=== PATIENT | female | born 1975 | race Caucasian/White ===

== ENCOUNTER 2021-05-08 10:40 | Emergency (ER) | payer OTHER, SELFPAY ==
[2021-05-08 10:49] VITALS: BP 130/84; PULSE 100; RESP 18; TEMP 36.6; O2SAT 100
--- NOTE | 2021-05-08 10:49 | ED.URI ---
HPI - URI/Sore Throat General Chief Complaint: Upper Respiratory Infection Stated Complaint: congestion,headache,cough Time Seen by Provider: 05/08/21 10:47 Source: patient and RN notes reviewed Mode of arrival: ambulatory Limitations: no limitations History of Present Illness HPI Narrative: 45-year-old female presented for complaint of sinus congestion x2 weeks. Endorses cough and hoarse voice. Cough is worse at night. She has inhaler she has been using as needed. Also using [id number] cough syrup nyquil and daily cetirizine. She denies shortness of breath, wheezing, nausea, vomiting, diarrhea, fever or chills. Denies sick contacts. She is vaccinated for Covid and flu. She states she had Covid 01/2021. MD elicited complaint: cough Related Data Home Medications Medication Instructions Recorded Confirmed famotidine 40 mg PO HS 05/08/21 05/08/21 gabapentin 300 mg PO BID 05/08/21 05/08/21 phentermine 37.5 mg PO DAILY 05/08/21 05/08/21 rosuvastatin 5 mg PO DAILY 05/08/21 05/08/21 topiramate 200 mg PO BID 05/08/21 05/08/21 Allergies Allergy/AdvReac Type Severity Reaction Status Date / Time nitrofurantoin Allergy Mild RASH Verified 05/08/21 10:56 Review of Systems Review of Systems: CONSTITUTIONAL: denies malaise, chills, sweats, fever EYES: Denies visual changes, redness, or discharge ENT: Reports rhinorrhea, congestion, denies sinus pain, otalgia, sore throat CARDIOVASCULAR: Denies chest pain, palpitations, edema RESPIRATORY: Reports cough, post nasal drainage. Denies dyspnea GASTROINTESTINAL: Denies abdominal pain, nausea, vomiting, diarrhea SKIN: Denies rash or itching MUSCULOSKELETAL: denies myalgia NEUROLOGIC: Denies headache REPLACED BY [facility] Social History Social History Gender identity (if verbalized by the patient): Female Exam Narrative: GENERAL: Ill-appearing, nontoxic HEAD: Normocephalic EYES: conjunctivae clear ENT: Mucous membranes moist. TM pearly foreman with dull light reflex bilaterally; no tragal tenderness. Hoarse voice, Oropharynx erythematous, tonsils absent, without lesions or exudate, no drooling, no hoarseness, no trismus, uvula midline. No tripod positioning, muffled voice, soft palate or pharyngeal wall bulging NECK: Supple. No lymphadenopathy CHEST: Clear to auscultation, breath sounds equal. No wheezing, rhonchi, rales, or stridor. No respiratory distress, speaks in full sentences. HEART: Regular rate and rhythm. No murmur heard. SKIN: Warm, dry, no rash. NEURO: Alert and oriented x3. PSYCH: Normal mood and affect Course Course Emergency Course: Patient is aware of diagnosis, understands and agrees to treatment plan. Anticipatory guidance given. Patient agrees to follow-up as directed and is aware of reasons to seek care at the emergency department. Portions of this record may have been created with voice recognition software Level of Care: Express Care Visit Vital Signs Vital signs: Vital Signs Temperature 97.9 F 05/08/21 10:49 Pulse Rate 100 05/08/21 10:49 Respiratory Rate 18 05/08/21 10:49 Blood Pressure 130/84 05/08/21 10:49 Pulse Oximetry 100 05/08/21 10:49 Temperature 97.9 F 05/08/21 10:49 Pulse Rate 100 05/08/21 10:49 Respiratory Rate 18 05/08/21 10:49 Blood Pressure 130/84 05/08/21 10:49 Pulse Oximetry 100 05/08/21 10:49 reviewed MDM - URI/Sore Throat MDM Narrative Medical decision making narrative: Symptoms are consistent with sinusitis. Antibiotic and steroid prescribed for laryngitis. She is agreeable to take Tessalon Perles, however she states she is not sure if her insurance will cover it and will get the guaifenesin with codeine prescription filled only if no coverage for the Tessalon Perles. Patient is appropriate for outpatient treatment and follow-up. Differential Diagnosis Differential diagnosis: Likely upper respiratory infection, sinusitis, viral infection and
== END 2021-05-08 11:06 | disposition home or self-care (01) ==
PROVIDERS: Emergency Provider Nurse Practitioner Family; PCP Family Medicine
DX: J06.9 Acute upper respiratory infection, unspecified (principal); Z86.16 Personal history of COVID-19
CPT/HCPCS: 99213; G0463

== ENCOUNTER 2021-07-15 10:04 | Emergency (ER) | payer OTHER, SELFPAY ==
--- NOTE | 2021-07-15 10:29 | ED.URI ---
HPI - URI/Sore Throat General Chief Complaint: Upper Respiratory Infection Stated Complaint: sob,congestion Time Seen by Provider: 07/15/21 10:29 Source: patient Mode of arrival: ambulatory Limitations: no limitations History of Present Illness HPI Narrative: Ms. Burns is a 46-year-old female patient presenting to the clinic today with complaints of shortness of breath and congestion for 3 days. She reports she is unable to breathe out of her nose and she feels as though something is sitting on her chest. Denies any chest pain however she feels as though she has some chest congestion. She has a history of asthma and has used albuterol inhalers in the past for this. She also reports that she has a productive cough with some light yellowish coloration. Feels as though drainage is going in the back of her throat. She denies any fever or chills. She denies any known exposure to anybody with COVID, flu, or strep. She has had COVID back in January of last year. Related Data Home Medications Medication Instructions Recorded Confirmed gabapentin 300 mg capsule cap 07/15/21 phentermine 37.5 mg tablet tablet 07/15/21 rosuvastatin 5 mg tablet tablet 07/15/21 topiramate 100 mg tablet tablet 07/15/21 ubrogepant 100 mg tablet (Ubrelvy) tablet 07/15/21 Allergies Allergy/AdvReac Type Severity Reaction Status Date / Time nitrofurantoin Allergy Mild RASH Verified 07/15/21 11:10 Review of Systems Review of Systems: Pertinent positives per HPI. Patient denies any fever, chills, rash, headache, visual changes, dizziness, runny nose, sore throat, chest pain, palpitations, nausea, vomiting, diarrhea, constipation, abdominal pain, or any urinary issues. PMFSH Social History Social History Gender identity (if verbalized by the patient): Female Comments At the time of my signature, I reviewed and agree with the nursing past medical, surgical, social, and family history. There is no relevant family history pertinent to the patient complaint. Exam Narrative: General: Well-developed, well nourished, in no apparent distress Head: Normocephalic, atraumatic Eyes: Pupils equally round and reactive to light bilaterally, EOM intact, sclera and conjunctive clear, no discharge, lids normal Ears: TMs intact and clear, ear canals clear, no drainage, grossly hearing normal. Nose: Nares patent, no discharge, moderate inflammation to the anterior and posterior turbinates no sinus tenderness. Mouth: Oropharynx without lesions or masses, good dentition, MMM. Oropharynx red, postnasal drip Neck: Supple, trachea midline, no enlargement of anterior or posterior cervical nodes, no thyroid masses or goiter palpable. Cardio: Regular rate and rhythm, s1 and s2 normal, no murmur appreciated. Resp: Lung sounds diminished in the lower bases otherwise clear to auscultation bilaterally anteriorly and posteriorly, no rhonchi, rales, wheezing or rubs Course Course Emergency Course: Portions of this record may have been created with voice recognition software. Level of Care: Express Care Visit Vital Signs Vital signs: Vital signs reviewed MDM - URI/Sore Throat MDM Narrative Medical decision making narrative: At the time of visit patient is resting me on the exam table. She reports that she feels as though something is sitting on her chest. She is complaining of some shortness of breath with head congestion. EKG, COVID testing, and influenza testing completed in the clinic. EKG shows sinus tach with a heart rate of 106 without ectopy. Influenza testing was negative. COVID testing was positive. Supportive measures were discussed with the patient and I will give her a prescription for albuterol inhaler and paxlovid. Discussed that she needs to discontinue her Ubrelvy while taking the paxlovid. She voiced understanding discharge instructions and agrees with the treatment plan. Different
[2021-07-15 10:36] VITALS: BP 138/90; PULSE 119; RESP 18; TEMP 36.6; O2SAT 100
--- NOTE | 2021-07-15 11:00 | ECG_ITS ---
Measurements Intervals [place] Rate: 106 P: 69 WA: 142 QRS: 48 QRSD: 78 T: 53 QT: 322 QTc: 429 Interpretive Statements SINUS TACHYCARDIA OTHERWISE WITHIN NORMAL LIMITS ABNORMAL RHYTHM ECG NO PREVIOUS ECG AVAILABLE FOR COMPARISON Electronically Signed On 07-15-2021 14:14:08 CDT by Matt Casiano M.D.
[2021-07-15 11:11] VITALS: PULSE 106
== END 2021-07-15 11:29 | disposition home or self-care (01) ==
PROVIDERS: Emergency Provider Nurse Practitioner Family; PCP Family Medicine
DX: U07.1 COVID-19 (principal); E78.00 Pure hypercholesterolemia, unspecified; J45.909 Unspecified asthma, uncomplicated
CPT/HCPCS: 87426; 87804; 93005; 99213; C9803; G0463

== ENCOUNTER 2022-02-18 09:33 | Emergency (ER) | payer OTHER, SELFPAY ==
[2022-02-18 09:47] VITALS: BP 120/91; PULSE 85; RESP 18; TEMP 36.4; O2SAT 100
--- NOTE | 2022-02-18 09:51 | ED.URI ---
HPI - URI/Sore Throat General Chief Complaint: Upper Respiratory Infection Stated Complaint: sinus pressure,cough Time Seen by Provider: 02/18/22 10:00 Source: patient and RN notes reviewed Mode of arrival: ambulatory Limitations: no limitations History of Present Illness HPI Narrative: 46 y/o female presented for c/o sinus pressure, congestion and cough for 5 days. Endorses in her voice 2 days ago. She denies body aches, lethargy, nausea vomiting or diarrhea. endorses feeling short of breath with exertion. She denies chest pain or palpitations. She is taking NyQuil, Advil D, and Mucinex for symptoms. Endorses a history of sinus infections and states this feels similar. MD elicited complaint: cough Related Data Home Medications Medication Instructions Recorded Confirmed topiramate 100 mg tablet 100 tablet PO DAILY 07/15/21 02/18/22 ubrogepant 100 mg tablet (Ubrelvy) 1 tablet PO DAILY 07/15/21 02/18/22 simvastatin 40 mg tablet 40 mg PO DAILY 02/18/22 02/18/22 Allergies Allergy/AdvReac Type Severity Reaction Status Date / Time nitrofurantoin AdvReac Mild RASH Verified 02/18/22 09:44 Review of Systems Review of Systems: Per HPI [facility] Social History Social History Gender identity (if verbalized by the patient): Female Exam Narrative: GENERAL: Ill-appearing, nontoxic EYES: PERRLA, conjunctivae clear ENT: Mucous membranes moist. TM pearly foreman with dull light reflex bilaterally; no tragal tenderness. Hoarse voice.Oropharynx without lesions or exudate, Tonsils absent No tripod positioning, muffled voice, soft palate or pharyngeal wall bulging NECK: Supple. No lymphadenopathy CHEST: Clear to auscultation, breath sounds equal. No wheezing, rhonchi, rales, or stridor. No respiratory distress, speaks in full sentences. HEART: Regular rate and rhythm. No murmur heard. SKIN: Warm, dry, no rash. NEURO: Alert and oriented x3. PSYCH: Normal mood and affect Course Course Emergency Course: Patient is aware of diagnosis, understands and agrees to treatment plan. Anticipatory guidance given. Patient agrees to follow-up as directed and is aware of reasons to seek care at the emergency department. Portions of this record may have been created with voice recognition software Level of Care: Express Care Visit Vital Signs Vital signs: Vital Signs Temperature 97.5 F L 02/18/22 09:47 Pulse Rate 85 02/18/22 09:47 Respiratory Rate 18 02/18/22 09:47 Blood Pressure 120/91 H 02/18/22 09:47 Pulse Oximetry 100 02/18/22 09:47 Oxygen Delivery Room Air 02/18/22 09:47 Temperature 97.5 F L 02/18/22 09:47 Pulse Rate 85 02/18/22 09:47 Respiratory Rate 18 02/18/22 09:47 Blood Pressure 120/91 H 02/18/22 09:47 Pulse Oximetry 100 02/18/22 09:47 Oxygen Delivery Room Air 02/18/22 09:47 reviewed MDM - URI/Sore Throat MDM Narrative Medical decision making narrative: Advised supportive measures and signs/symptoms to go to the ER. Pt is appropriate for outpt treatment and f/u. Differential Diagnosis Differential diagnosis: Likely upper respiratory infection, sinusitis and viral infection Discharge Plan Discharge Clinical Impression: Upper respiratory infection Qualifiers: URI type: unspecified URI Qualified Code(s): J06.9 - Acute upper respiratory infection, unspecified Patient Disposition: Home, Self-Care Condition: Stable Instructions: Antibiotic Form, Rhinosinusitis (ED) Additional Instructions: Recommend Flonase spray and Zyrtec (or Claritin/Aimee) over the counter Cough syrup may cause drowsiness; avoid driving or take it at night time. Tylenol 1000mg every 8 hours as needed for pain Symptomatic treatment includes: rest, fluids, and increase humidity of the air at home. Follow up with your primary care provider in 1 week. Go to the ER for worsening symptoms or concerns. Prescriptions: New predniso
== END 2022-02-18 10:10 | disposition home or self-care (01) ==
PROVIDERS: Emergency Provider Nurse Practitioner Family; PCP Family Medicine
DX: J06.9 Acute upper respiratory infection, unspecified (principal)
CPT/HCPCS: 99213; G0463

== ENCOUNTER 2022-12-13 16:31 | Emergency (ER) | payer OTHER, SELFPAY ==
--- NOTE | 2022-12-13 16:59 | ED.SKABFB ---
HPI - Skin/Abscess/Foreign Bdy General Chief complaint: Skin/Abscess/Foreign Body Stated complaint: insect bite Time Seen by Provider: 12/13/22 17:07 Source: patient, RN notes reviewed and old records reviewed Mode of arrival: ambulatory Limitations: no limitations History of Present Illness HPI narrative: 47-year-old to [facility] with concerns over an insect bite. Patient that she was bit or stung by something approximately 140 this afternoon. Area cleaned by the school nurse. States since then the area has swollen and has larger. Currently the red area is medial the measures 4 and cm. No fluctuance center. Denies any lip or tongue swelling. Full range of motion of the joints above and below. Strong coarse wire drawer. Positive radial pulse. Sensation capillary refill 2 seconds. Denies any difficulty breathing, chest pain Onset (ago): hour(s) (4) Related Data Home Medications Medication Instructions Recorded Confirmed topiramate 100 mg tablet 100 tablet PO DAILY 07/15/21 12/13/22 ubrogepant 100 mg tablet (Ubrelvy) 1 tablet PO DAILY 07/15/21 12/13/22 simvastatin 40 mg tablet 40 mg PO DAILY 02/18/22 12/13/22 butalbital 50 mg-acetaminophen 325 1 cap PO Q4H PRN Migraine Headache 10/31/22 12/13/22 mg-caffeine 40 mg-codeine 30 mg cap onabotulinumtoxinA 100 unit 5 unit IM ONCE 10/31/22 12/13/22 solution for injection (Botox) ondansetron HCl 4 mg tablet 4 mg PO Q8H 10/31/22 12/13/22 Allergies Allergy/AdvReac Type Severity Reaction Status Date / Time nitrofurantoin AdvReac Mild RASH Verified 10/31/22 15:35 Review of Systems Review of Systems: All systems reviewed & are unremarkable except as noted in HPI and below Constitutional: Constitutional: Reports no additional constitutional complaints Eyes: Eyes: Reports no additional eye complaints ENT: Reports system reviewed and no additional complaints, except as documented Cardiovascular: Cardiovascular: Reports no additional cardiovascular complaints, Denies chest pain and Denies dyspnea Respiratory: Respiratory: Reports no additional respiratory complaints, Denies chest congestion, Denies cough and Denies dyspnea Gastrointestinal: Gastrointestinal: Reports no additional gastrointestinal complaints, Denies abdominal pain, Denies nausea and Denies vomiting Musculoskeletal: Musculoskeletal: Reports no additional musculoskeletal complaints Integumentary/Breasts: Skin/Breast: Reports as per HPI Neurologic: Reports system reviewed and no additional complaints, except as documented Psychiatric: Psychiatric: Reports no additional psychiatric complaints Allergic/Immunologic: Allergic/Immunologic: Reports no additional allergic/immunologic complaints [facility] Past Medical History Medical History Asthma Ectopic Heart murmur Hyperlipidemia Irregular heart beat Kidney stones stents placed Screening mammogram, encounter for Surgical History Surgical History H/O breast augmentation (~1997) H/O chest tube placement (~1997) History of appendectomy (~1989) History of gynecological procedure (~1988) LASER SURGERY VAGINA History of gynecological procedure (01/06/07) LAPAROSCOPIC EVALUATION, EVACUATION OF HEMATOMA, LEFT PARTIAL SALPINGECTOMY - pelvic hematoma, left ruptured ectopic History of hysteroscopy (~1993) 2005 History of hysteroscopy (12/25/06) suction D&C / POC History of orthopedic surgery (~2017) 2019 History of robot-assisted laparoscopic hysterectomy (04/16/13) Total laparoscopic hysterectomy, robotic assist - squamous atypia, cervicitis, leiomyoma History of tonsillectomy (~1983) T&A Hx of cholecystectomy (~2018) Family History Family History Father Heart disease Mother Hypertension Cervical cancer Uterine cancer Grandparent Cervical cancer maternal grandmother
[2022-12-13 17:03] VITALS: BP 138/85; PULSE 97; RESP 16; TEMP 36.2; O2SAT 100
== END 2022-12-13 17:22 | disposition home or self-care (01) ==
PROVIDERS: Emergency Provider Nurse Practitioner; PCP Family Medicine
DX: T63.481A Toxic effect of venom of other arthropod, accidental (unintentional), initial encounter (principal); J45.909 Unspecified asthma, uncomplicated; R01.1 Cardiac murmur, unspecified; E78.5 Hyperlipidemia, unspecified
CPT/HCPCS: 99213; G0463